=== PATIENT | female | born 1960 | race Caucasian/White ===

== ENCOUNTER 2021-03-12 10:32 | Emergency (ER) | payer BC ==
--- NOTE | 2021-03-12 11:22 | EDM.PDOC ---
ED HPI GENERAL MEDICAL PROBLEM - General Chief Complaint: Wound Recheck Stated Complaint: KNEE REPLACEMENT BANDAGE CHANGE Time Seen by Provider: 03/12/21 11:10 Source of Information: Reports: Patient History Limitations: Reports: No Limitations - History of Present Illness INITIAL COMMENTS - FREE TEXT/NARRATIVE: This 59 yo female patient reports to the ED for a dressing change. The patient reports she had a total right knee replacement last week by Dr. Fuentes in [place]. The patient reports she has noticed some increased fluid collection under the bandage. The patient called Dr. Fuentes and was advised to come to the ED for a bandage change. The patient denies any falls or excessive pain to the area. Onset: Gradual Duration: Day(s): Location: Reports: Lower Extremity, Right (knee) Quality: Reports: Other Severity: Mild Improves with: Reports: None Worsens with: Reports: None Context: Reports: Other Associated Symptoms: Reports: No Other Symptoms - Related Data Allergies Allergy/AdvReac Type Severity Reaction Status Date / Time No Known Allergies Allergy Verified 03/12/21 11:12 ED ROS GENERAL - Review of Systems Review Of Systems: Comprehensive ROS is negative, except as noted in HPI. ED EXAM, SKIN/RASH Exam: See Below Exam Limited By: No Limitations General Appearance: Alert, WD/WN, No Apparent Distress Eye Exam: Bilateral Eye: EOMI, Normal Inspection Ears: Normal External Exam, Hearing Grossly Normal Nose: No Blood Throat/Mouth: Normal Lips, Normal Teeth, Normal Voice Neck: Full Range of Motion Respiratory/Chest: No Respiratory Distress, Lungs Clear Cardiovascular: Normal Peripheral Pulses, Regular Rate, Rhythm Extremities: Other (The patient had a total right knee replacement with a collection of blood under the bandage. The bandage was removed during the visit. The surgical wound appears to be healing well with no current drainage or excessive edema to the area.) Neurological: Alert, Oriented, CN II-XII Intact, Normal Cognition, Normal Gait, Normal Reflexes, No Motor/Sensory Deficits Psychiatric: Normal Affect, Normal Mood Skin: Warm, Dry, Normal Color, No Rash Location, Skin: Lower Extremity, Right Characteristics: Other Lymphatic: No Adenopathy Course - Vital Signs Last Recorded V/S: Last Vital Signs Temp 97.4 F 03/12/21 11:12 Pulse 86 03/12/21 11:12 Resp 18 03/12/21 11:12 BP 120/84 03/12/21 11:12 Pulse Ox 96 03/12/21 11:12 - Re-Assessments/Exams Free Text/Narrative Re-Assessment/Exam: 03/12/21 11:22 The surgical site appears to be healing well with no current signs of edema, drainage or infection. 03/12/21 11:30 After the site was cleaned, the wound continues to appear to be healing well without any signs of complications. Departure - Departure Time of Disposition: 11:31 Disposition: Home, Self-Care 01 Condition: Fair Clinical Impression: Dressing change or removal, surgical wound - Discharge Information *PRESCRIPTION DRUG MONITORING PROGRAM REVIEWED*: Not Applicable *COPY OF PRESCRIPTION DRUG MONITORING REPORT IN PATIENT VARGAS: Not Applicable Referrals: PCP,None [Primary Care Provider] - Forms: ED Department Discharge Care Plan Goals: The patient was encouraged to continue to follow Dr. Fuentes's post operative instructions. If the patient has any additional symptoms or concerns, the patient was encouraged to either return to the emergency department, consult with Dr. Fuentes or visit her primary care facility. Sepsis Event Note (ED) - Focused Exam Vital Signs: Vital Signs Temp Pulse Resp BP Pulse Ox 03/12/21 11:12 97.4 F 86 18 120/84 96
== END 2021-03-12 11:46 | disposition home or self-care (01) ==
LOC: DL.ED 10:32 → EDBD 10:32 → DL.ED 11:46
DX: Z48.01 Encounter for change or removal of surgical wound dressing (principal); Z96.651 Presence of right artificial knee joint
CPT/HCPCS: 99282